=== PATIENT | male | born 1990 | race African-American/Black ===

== ENCOUNTER 2016-03-27 02:12 | Emergency (ER) | payer SELFPAY ==
[~2016-03-27] VITALS: Ht 193 cm; Wt 77.0 kg
[~2016-03-27 02:12] MED LIST: ALBU6.7H INH; PRED20 PO; VENTAER INH
[2016-03-27 02:16] VITALS: BP 151/98; PULSE 108; RESP 23; TEMP 98.3; O2SAT 87
[2016-03-27] MEDS: RESP: ALBUTEROL 2.5 MG/3 ML NEB (SCH) INH ×2 (02:20→02:28)
[2016-03-27 02:22] VITALS: RESP 20; O2SAT 93
[2016-03-27 02:25] VITALS: BP 158/97; PULSE 110; RESP 24; O2SAT 92
[2016-03-27] MEDS ORDERED: methylPREDNISolone SOD SUCC 125 MG/2 ML VIAL IVP ONE (02:30)
[2016-03-27] MEDS ORDERED: SODIUM CHLORIDE 0.9% FLUSH 5 ML FLUSH IVF PRN (02:30)
--- NOTE | 2016-03-27 02:39 | RADRPT ---
EXAM DATE/TIME: 03/27/2016 02:18 [facility] COMPARISON: CHEST SINGLE AP, June 15, 2015, 12:19. INDICATIONS : Shortness of breath. MEDICAL HISTORY : Asthma. SURGICAL HISTORY : None. ENCOUNTER: Initial ACUITY: 1 day PAIN SCORE: 0/10 LOCATION: Bilateral chest FINDINGS: A single view of the chest demonstrates the lungs to be symmetrically aerated without evidence of mas s, infiltrate or effusion. The cardiomediastinal contours are unremarkable. Osseous structures are intact. CONCLUSION: No acute disease. Royal Zee MD on March 27, 2016 at 2:37 Board Certified Radiologist. This report was verified electronically.
[2016-03-27] MEDS ORDERED: PRED20 PO (04:48)
[2016-03-27] MEDS ORDERED: VENTAER INH (04:48)
--- NOTE | 2016-03-27 04:48 | PD ---
HPI Chief Complaint: Respiratory Distress Time Seen by Provider: 02:22 Travel History International Travel<30 days: No Contact w/Intl Traveler<30days: No Traveled to known affect area: No History of Present Illness HPI 25 yo M arrives with wheezing. It has been worsening over the past day and a half or so. He has asthma. He smokes tobacco. He's had no fever. An occasional cough is reported. Chest tightness is reported. Onset gradual. Severity moderate. he denies drug abuse. PFSH Past Medical History Asthma: Yes Autoimmune Disease: No Blood Disorders: No Anxiety: Yes (WITH ASTHMA ATTACKS) Depression: No Heart Rhythm Problems: No Cardiovascular Problems: No Chest Pain: No Cystic Fibrosis: No Developmental Delay: No Diminished Hearing: No Genitourinary: No Headaches: No Hypertension: No Musculoskeletal: No Neurologic: No Psychiatric: No Reproductive: No Respiratory: Yes (ASTHMA) Immunizations Current: Yes Seizures: No Sickle Cell Disease: No Sleep Apnea: No Past Surgical History Surgical History: No Previous Surgery Abdominal Surgery: No Cardiac Surgery: No Ear Surgery: No Endocrine Surgery: No Eye Surgery: No Genitourinary Surgery: No Gynecologic Surgery: No Neurologic Surgery: No Oral Surgery: No Thoracic Surgery: No Social History Alcohol Use: No Tobacco Use: No Substance Use: Yes (OCC MARIJUANA) Allergies-Medications (Allergen,Severity, Reaction): Coded Allergies: No Known Allergies (Verified , 03/27/16) Reported Meds & Prescriptions Reported Meds & Active Scripts Active Ventolin Hfa 18 GM Inh (Albuterol Sulfate) 90 Mcg/Act Aer 2 Puff INH Q4-6H PRN Prednisone 20 Mg Tab 40 Mg PO DAILY 4 Days Reported Proventil Hfa 6.7 GM Inh (Albuterol Sulfate) 90 Mcg/Act Aer 2 Puff INH Q4-6H PRN Review of Systems Except as stated in HPI: all other systems reviewed are Neg Physical Exam Narrative GENERAL: 25 yo M, WNWD, moderate respt distress SKIN: Warm and dry. HEAD: Atraumatic. Normocephalic. EYES: Pupils equal and round. No scleral icterus. No injection or drainage. ENT: No nasal bleeding or discharge. Mucous membranes pink and moist. NECK: Trachea midline. No JVD. CARDIOVASCULAR: Regular rate and rhythm. RESPIRATORY: Wheezing. Dyspnea. GASTROINTESTINAL: Abdomen soft, non-tender, nondistended. Hepatic and splenic margins not palpable. MUSCULOSKELETAL: Extremities without clubbing, cyanosis, or edema. No obvious deformities. NEUROLOGICAL: Awake and alert. No obvious cranial nerve deficits. Motor grossly within normal limits. Five out of 5 muscle strength in the arms and legs. Normal speech. PSYCHIATRIC: Appropriate mood and affect; insight and judgment normal. Data Data Last Documented VS Vital Signs Date Time Temp Pulse Resp B/P Pulse Ox O2 Delivery O2 Flow Rate FiO2 03/27/16 02:25 110 24 158/97 92 Nasal Cannula 4 03/27/16 02:16 98.3 VS reviewed Orders Iv Access Insert/Monitor (03/27/16 02:22) Ecg Monitoring (03/27/16 02:22) Oximetry (03/27/16 02:22) Oxygen Administration (03/27/16 02:22) Chest, Single Ap (03/27/16 02:22) Sodium Chloride 0.9% Flush (Ns Flush) (03/27/16 02:30) Methylprednisolone So Succ Inj (Solumedr (03/27/16 02:30) Albuterol Neb (Albuterol Neb) (03/27/16 02:30) Albuterol Hfa Inh (Proair Hfa Inh) (03/27/16 05:00) Albuterol Neb (Albuterol Neb) (03/27/16 05:00) MDM Medical Decision Making Medical Screen Exam Complete: Yes Emergency Medical Condition: Yes Medical Record Reviewed: Yes Differential Diagnosis asthma, pna, ptx Narrative Course Last 24 hours Impressions Chest X-Ray 03/27/162 Signed Impressions: Service Date/Time: Sunday, March 27, 2016 02:18 - CONCLUSION: No acute disease. Royal Zee MD Wheezing resolved. Inhaler provided. Tobacco cessation discussed. Diagnosis Primary Impression: Acute asthma exacerbation Qualified Code: J45.901 - Asthma with acute exacerbation, unspecified asthma severity Referrals: Primary Care Physician 2 days Additional Instructions: You have a choice when it comes to health care, and we are glad that you chose [facility]. Hopefully, we have met your expectations on today's visit. You are welcome to return to [facility] at any time, as we are committed to meeting the health care needs of our community. Med/Other Pt SpecificInfo: Prescription(s) given Scripts Albuterol 18 GM Inh (Ventolin Hfa 18 GM Inh)90 Mcg/Act Aer2 Puff INH Q4-6H PRN ( SHORTNESS OF BREATH) #1 INHALER Ref 0 Prov:Matt Olmedo MD 03/27/16 Prednisone 20 Mg Tab40 Mg PO DAILY 4 Days Prov:Matt Olmedo MD 03/27/16 Disposition: 01 DISCHARGE HOME Condition: Stable Matt Olmedo MD Mar 27, 2016 04:48
[2016-03-27] MEDS ORDERED: RESP: ALBUTEROL 2.5 MG/3 ML NEB (SCH) INH ONE (05:00)
[2016-03-27] MEDS ORDERED: ALBUTEROL SULFATE 90 MCG/ACT HFA 8 GM INHALER INH ONE (05:00)
[2016-03-27 06:45] VITALS: BP 153/80; PULSE 98; RESP 17; O2SAT 93
== END 2016-03-27 06:46 | disposition home or self-care (01) ==
LOC: NEPC 02:12
DX: J45.901 Unspecified asthma with (acute) exacerbation (principal); Z72.0 Tobacco use; F12.90 Cannabis use, unspecified, uncomplicated
CPT/HCPCS: 71010; 94640; 94664; 96374; 99283; J2930; J7613

== ENCOUNTER 2016-06-09 19:44 | Emergency (ER) | payer SELFPAY ==
[~2016-06-09] VITALS: Ht 185.4 cm; Wt 88.0 kg
[2016-06-09 19:48] VITALS: BP 136/84; PULSE 95; RESP 16; TEMP 98.7; O2SAT 100
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
[2016-06-09] MEDS ORDERED: PRED20 PO (20:38)
[2016-06-09] MEDS ORDERED: VENTAER INH (20:38)
[2016-06-09] MEDS ORDERED: AUGM875T PO (20:38)
[2016-06-09] MEDS ORDERED: predniSONE 20 MG TAB PO ONE (20:45)
[2016-06-09] MEDS ORDERED: AMOXICILLIN/CLAVULANATE K 875 MG TAB PO ONE (20:45)
[2016-06-09] MEDS ORDERED: TETANUS/DIPHTHERIA TOXOID ADULT 0.5 ML VIAL IM ONE (20:45)
[2016-06-09] MEDS ORDERED: ACETAMINOPHEN 325 MG TAB PO ONE (20:45)
[2016-06-09] MEDS ORDERED: RESP: ALBUTEROL 2.5 MG/IPRATROPIUM 0.5 MG NEB (SCH) INH ONE (20:45)
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
[2016-06-09] MEDS ORDERED: DICL75TA PO (21:34)
[2016-06-09] MEDS ORDERED: NAPROXEN 500 MG TAB PO ONE (21:45)
== END 2016-06-09 22:15 | disposition home or self-care (01) ==
LOC: NEPD 19:44
DX: S83.501A Sprain of unspecified cruciate ligament of right knee, initial encounter (principal); S70.272A Other superficial bite of hip, left hip, initial encounter; R68.84 Jaw pain; J32.4 Chronic pansinusitis; J45.901 Unspecified asthma with (acute) exacerbation; Y04.1XXA Assault by human bite, initial encounter; Y92.89 Other specified places as the place of occurrence of the external cause; Z23 Encounter for immunization
CPT/HCPCS: 70450; 70486; 71010; 73564; 90471; 90714; 94664; 99284; J7512

== ENCOUNTER 2017-03-08 17:15 | Observation (INO) | payer SELFPAY ==
[~2017-03-08] VITALS: Ht 193 cm; Wt 86.2 kg
[~2017-03-08 17:15] MED LIST changes: -ALBU6.7H INH; +AUGM875T PO; +DICL75TA PO
[2017-03-08 17:17] VITALS: BP 132/67; PULSE 86; RESP 16; TEMP 98.4; O2SAT 95
[2017-03-08] MEDS ORDERED: KETOROLAC TROMETHAMINE 30 MG/ML (IVP) VIAL IV PUSH ONE (20:15)
[2017-03-08] MEDS ORDERED: SODIUM CHLORIDE 0.9% FLUSH 10 ML FLUSH IV FLUSH PRN (20:15)
--- NOTE | 2017-03-08 20:29 | PD ---
HPI Chief Complaint: Abdominal Pain Time Seen by Provider: 20:10 Travel History International Travel<30 days: No Contact w/Intl Traveler<30days: No Traveled to known affect area: No History of Present Illness HPI 26-year-old male here for evaluation of right lower quadrant abdominal/groin pain. 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 Describes pain as a pressure, constant, worse with movement and palpation. He denies history of abdominal surgeries. He believes he may have a hernia. No pain. No direct trauma. No vomiting. PFSH Past Medical History Asthma: Yes Autoimmune Disease: No Blood Disorders: No Anxiety: Yes (WITH ASTHMA ATTACKS) Depression: No Heart Rhythm Problems: No Cardiovascular Problems: No Chest Pain: No Cystic Fibrosis: No Developmental Delay: No Diminished Hearing: No Genitourinary: No Headaches: No Hypertension: No Musculoskeletal: No Neurologic: No Psychiatric: No Reproductive: No Respiratory: Yes Immunizations Current: Yes Seizures: No Sickle Cell Disease: No Sleep Apnea: No Past Surgical History Abdominal Surgery: No Cardiac Surgery: No Ear Surgery: No Endocrine Surgery: No Eye Surgery: No Genitourinary Surgery: No Gynecologic Surgery: No Neurologic Surgery: No Oral Surgery: No Thoracic Surgery: No Social History Alcohol Use: No Tobacco Use: No Substance Use: No Allergies-Medications (Allergen,Severity, Reaction): Coded Allergies: No Known Allergies (Verified Adverse Reaction, Unknown, 03/08/17) Reported Meds & Prescriptions Reported Meds & Active Scripts Active Review of Systems Except as stated in HPI: all other systems reviewed are Neg Physical Exam Narrative GENERAL: Well-developed, well-nourished, comfortable, no apparent distress. SKIN: Focused skin assessment warm/dry. No rash. HEAD: Atraumatic. Normocephalic. EYES: Pupils equal and round. No scleral icterus. No injection or drainage. ENT: No nasal bleeding or discharge. Mucous membranes pink and moist. NECK: Trachea midline. No JVD. CARDIOVASCULAR: Regular rate and rhythm. No murmur appreciated. RESPIRATORY: No accessory muscle use. Clear to auscultation. Breath sounds equal bilaterally. GASTROINTESTINAL: Abdomen soft, nondistended. Moderate right lower quadrant tenderness and tenderness along the right inguinal canal without obvious hernia , without peritoneal signs. The rest of his abdomen is soft and nontender. Normal bowel sounds. : Tenderness along the right inguinal canal without masses or obvious hernia. Rest of his exam is within normal limits without swelling or masses or tenderness. MUSCULOSKELETAL: No obvious deformities. No clubbing. No cyanosis. No edema. NEUROLOGICAL: Awake and alert. No obvious cranial nerve deficits. Motor grossly within normal limits. Normal speech. PSYCHIATRIC: Appropriate mood and affect; insight and judgment normal. Data Data Last Documented VS Vital Signs Date Time Temp Pulse Resp B/P (MAP) Pulse Ox O2 Delivery O2 Flow Rate FiO2 03/09/17 00:30 70 16 128/71 (90) 98 Room Air 03/08/17 22:37 21 03/08/17 17:17 98.4 Orders Orders Complete Blood Count With Diff (03/08/17 20:14) Comprehensive Metabolic Panel (03/08/17 20:14) Prothrombin Time / Inr (Pt) (03/08/17 20:14) Act Partial Throm Time (Ptt) (03/08/17 20:14) Urinalysis - C+S If Indicated (03/08/17 20:14) Ct Abd/Pel W Iv Contrast(Rout) (03/08/17 20:14) Iv Access Insert/Monitor (03/08/17 20:14) Ecg Monitoring (03/08/17 20:14) Oximetry (03/08/17 20:14) Sodium Chloride 0.9% Flush (Ns Flush) (03/08/17 20:15) Ketorolac Inj (Toradol Inj) (03/08/17 20:15) Oral Contrast - Adult (03/08/17 20:20) Diatrizoate Liq ( Gastroview Liq) (03/08/17 20:30) Urine Culture (03/08/17 20:30) Gc And Chlamydia Pcr (03/08/17 21:31) Ceftriaxone Inj (Rocephin Inj) (03/08/17 21:45) Azithromycin (Zithromax) (03/08/17 21:45) Azithromycin (Zithromax) (03/08/17 21:45) Iohexol 350 Inj (Omnipaque 350 Inj) (03/08/17 21:56) Morphine Inj (Morphine Inj) (03/08/17 22:30) Albuterol-Ipratropium Neb (Duoneb Neb) (03/08/17 22:30) Methylprednisolone So Succ Inj (Solumedr (03/08/17 22:30) Diatrizoate Liq (Md Denis Liq) (03/08/17 22:30) Labs Laboratory Tests Test 03/08/17 20:30 White Blood Count 6.3 TH/MM3 Red Blood Count 5.34 MIL/MM3 Hemoglobin 15.4 GM/DL Hematocrit 45.9 % Mean Corpuscular Volume 86.0 FL Mean Corpuscular Hemoglobin 28.9 PG Mean Corpuscular Hemoglobin Concent 33.6 % Red Cell Distribution Width 14.8 % Platelet Count 170 TH/MM3 Mean Platelet Volume 8.0 FL Neutrophils (%) (Auto) 53.5 % Lymphocytes (%) (Auto) 28.8 % Monocytes (%) (Auto) 10.5 % Eosinophils (%) (Auto) 6.0 % Basophils (%) (Auto) 1.2 % Neutrophils # (Auto) 3.4 TH/MM3 Lymphocytes # (Auto) 1.8 TH/MM3 Monocytes # (Auto) 0.7 TH/MM3 Eosinophils # (Auto) 0.4 TH/MM3 Basophils # (Auto) 0.1 TH/MM3 CBC Comment DIFF FINAL Differential Comment Prothrombin Time 10.8 SEC Prothromb Time International Ratio 1.1 RATIO Activated Partial Thromboplast Time 27.1 SEC Urine Color YELLOW Urine Turbidity CLEAR Urine pH 7.0 Urine Specific [place] 1.018 Urine Protein TRACE mg/dL Urine Glucose (UA) NEG mg/dL Urine Ketones NEG mg/dL Urine Occult Blood NEG Urine Nitrite NEG Urine Bilirubin NEG Urine Urobilinogen LESS THAN 2.0 MG/DL Urine Leukocyte Esterase MOD Urine RBC 3 /hpf Urine WBC 47 /hpf Urine Amorphous Sediment RARE Urine Mucus FEW /lpf Microscopic Urinalysis Comment CULTURE INDICATED Blood Urea Nitrogen 9 MG/DL Creatinine 1.20 MG/DL Random Glucose 71 MG/DL Total Protein 7.6 GM/DL Albumin 3.9 GM/DL Calcium Level 9.0 MG/DL Alkaline Phosphatase 64 U/L Aspartate Amino Transf (AST/SGOT) 26 U/L Alanine Aminotransferase (ALT/SGPT) 19 U/L Total Bilirubin 0.3 MG/DL Sodium Level 138 MEQ/L Potassium Level 4.3 MEQ/L Chloride Level 104 MEQ/L Carbon Dioxide Level 30.2 MEQ/L Anion Gap 4 MEQ/L Estimat Glomerular Filtration Rate 89 ML/MIN Chlamydia trachomatis DNA (PCR) DETECTED Neisseria gonorrhoeae DNA (PCR) NOT DETECTED MDM Medical Decision Making Medical Screen Exam Complete: Yes Emergency Medical Condition: Yes Differential Diagnosis Groin strain, appendicitis, inguinal hernia Narrative Course Vital signs show heart rate 86, blood pressure 132/67, pulse ox 95% on room air , tympanic temp of 98.4F. CBC: WBC 6.3, hemoglobin 15.4, hematocrit 45.9, platelets 170. CMP is unremarkable. UA: Moderate leukocyte esterase, 47 wbc's, few mucus. Patient was empirically treated for gonorrhea and chlamydia with Rocephin and azithromycin. CT abdomen pelvis: CONCLUSION: Hepatomegaly. Minimal ascites within the pelvis which is nonspecific. I discussed the CT findings with the reading radiologist Dr. Salas who tells me that contrast has not made its way down to the colon, therefore he cannot fully evaluate for appendicitis. He does not see any secondary signs of appendicitis , however there is some ascites. Plan is to have the patient drink more IV contrast and to repeat scan in 1 hour. Patient was made aware of findings and of plan. He tells me that he feels short of breath and feels as though he may be wheezing. He has history of asthma. On exam he does have inspiratory and 20 wheezes bilaterally. He is in no respiratory distress. DuoNeb treatments and IV Solu-Medrol ordered. Repeat CT Abd/Pelvis: Delayed images are performed following administration of additional oral contrast. The urinary bladder is densely opacified with contrast as are the ureters. There is a small amount of free fluid in the pelvis. The appendix is not definitively visualized. The I discussed the repeat CT with reading radiologist Dr. Cardona. Although he cannot see the appendix, there are no inflammatory changes that would suggest appendicitis. Patient was given IV Toradol initially and continued to complain of pain. He was given 4 mg of IV morphine and states that his pain has lessened, however is still there. His tenderness is mainly along the right inguinal canal. There are no masses or hernias present. This is more likely musculoskeletal strain, however the patient is concerned about his ongoing pain. He will be admitted for overnight observation for intractable abdominal pain. Case discussed with hospitalist Dr. Ballard who will admit the patient to her service. Diagnosis Primary Impression: Intractable abdominal pain Additional Impression: Asthma exacerbation Qualified Codes: J45.901 - Unspecified asthma with (acute) exacerbation Admitting Information Admitting Physician Requests: Observation Agusto Arteaga MD Mar 08, 2017 20:29
[2017-03-08] MEDS ORDERED: DIATRIZOATE MEGLUM/DIATRIZOATE SOD 9 ML CUP PO ONE ×2 (20:30→22:30)
[2017-03-08 20:37] LABS: AUTOMATED NEUTROPHIL # 3.4 TH/MM3 (1.8-7.7); BASOPHIL # 0.1 TH/MM3 (0-0.2); BASOPHIL % 1.2 % (0.0-2.0); EOSINOPHIL # 0.4 TH/MM3 (0-0.4); HEMATOCRIT 45.9 % (39.0-51.0); HEMOGLOBIN 15.4 GM/DL (13.0-17.0); LYMPH % 28.8 % (9.0-44.0); LYMPHOCYTE # 1.8 TH/MM3 (1.0-4.8); MEAN CORPUSCULAR HEMOGLOBIN 28.9 PG (27.0-34.0); MEAN CORPUSCULAR HGB CONC 33.6 % (32.0-36.0); MONO % 10.5 % (0.0-8.0); MONOCYTE # 0.7 TH/MM3 (0-0.9); NEUT % 53.5 % (16.0-70.0); PLATELET COUNT 170 TH/MM3 (150-450); RED BLOOD COUNT 5.34 MIL/MM3 (4.50-5.90); RED CELL DISTRIBUTION WIDTH 14.8 % (11.6-17.2); WHITE BLOOD COUNT 6.3 TH/MM3 (4.0-11.0)
[2017-03-08 20:40] VITALS: RESP 16
[2017-03-08 20:41] LABS: AMORPHOUS SEDIMENT, URINE RARE; BILIRUBIN, URINE NEG (NEG); BLOOD, URINE NEG (NEG); GLUCOSE,URINE NEG (NEG); KETONE, URINE NEG (NEG); MUCUS URINE FEW /lpf (OCC); NITRITE,URINE NEG (NEG); URINE COLOR YELLOW (YELLW/STRAW); URINE LEUKOCYTE ESTERASE MOD (NEG)
[2017-03-08 20:48] LABS: INTERNATIONAL NORMALIZED RATIO 1.1 RATIO; PROTHROMBIN TIME - PATIENT 10.8 SEC (9.8-11.6)
[2017-03-08 21:13] LABS: ALT (GPT) 19 U/L (12-78)
[2017-03-08 21:16] LABS: ALKALINE PHOSPHATASE 64 U/L (45-117); TOTAL BILIRUBIN ADULT 0.3 MG/DL (0.2-1.0); TOTAL PROTEIN 7.6 GM/DL (6.4-8.2)
[2017-03-08 21:27] LABS: ALBUMIN 3.9 GM/DL (3.4-5.0); AST (GOT) 26 U/L (15-37); BICARBONATE 30.2 MEQ/L (21.0-32.0); BLOOD UREA NITROGEN 9 MG/DL (7-18); CHLORIDE 104 MEQ/L (98-107); GLOMERULAR FILTRATION RATE 89 ML/MIN (>89); GLUCOSE,RANDOM 71 MG/DL (74-106); SODIUM (NA) 138 MEQ/L (136-145)
[2017-03-08] MEDS ORDERED: AZITHROMYCIN 250 MG TAB PO ONE ×2 (21:45)
[2017-03-08] MEDS ORDERED: cefTRIAXone INJ 1,000 MG in SODIUM CHLORIDE 0.9% INJ 100 ML IV ONE (21:45)
[2017-03-08] MEDS ORDERED: IOHEXOL 350 MG/ML 10 ML VIAL (for RAD DIAG) IVCONTRAST ONE (21:56)
--- NOTE | 2017-03-08 22:09 | RADRPT ---
EXAM DATE/TIME: 03/08/2017 21:51 This report includes an Addendum and supersedes previous reports for this exam. [facility] COMPARISON: No previous studies available for comparison. INDICATIONS : Abdominal pain. IV CONTRAST: 100 cc Omnipaque 350 (iohexol) IV ORAL CONTRAST: Prescribed oral contrast ingested. RADIATION DOSE: 4.90 CTDIvol (mGy) MEDICAL HISTORY : None SURGICAL HISTORY : None. ENCOUNTER: Initial ACUITY: 1 day PAIN SCALE: 5/10 LOCATION: abdomen TECHNIQUE: Volumetric scanning of the abdomen and pelvis was performed. Using automated exposure control and ad justment of the mA and/or kV according to patient size, radiation dose was kept as low as reasonably achievable to obtain optimal diagnostic quality images. DICOM format image data is available electro nically for review and comparison. FINDINGS: LOWER LUNGS: The visualized lower lungs are clear. LIVER: The liver is enlarged. Homogeneous density without lesion. There is no dilation of the biliary tree. No calcified gallstones. SPLEEN: Normal size without lesion. PANCREAS: Within normal limits. KIDNEYS: Normal in size and shape. There is no mass, stone or hydronephrosis. ADRENAL GLANDS: Within normal limits. VASCULAR: There is no aortic aneurysm. BOWEL/MESENTERY: The stomach, small bowel, and colon demonstrate no acute abnormality. There is no free intraperitone al air. Minimal free fluid is noted within the pelvis which is nonspecific. ABDOMINAL WALL: Within normal limits. RETROPERITONEUM: There is no lymphadenopathy. BLADDER: No wall thickening or mass. REPRODUCTIVE: Within normal limits. INGUINAL: There is no lymphadenopathy or hernia. MUSCULOSKELETAL: Within normal limits for patient age. CONCLUSION: Hepatomegaly. Minimal ascites within the pelvis which is nonspecific. Jeffrey Salas MD on March 08, 2017 at 22:03 Board Certified Radiologist. This report was verified electronically. ADDENDUM: Delayed images are performed following administration of additional oral contrast. The urinary bladde r is densely opacified with contrast as are the ureters. There is a small amount of free fluid in the pelvis. The appendix is not definitively visualized. The Khoi Cardona MD on March 08, 2017 at 23:58 Board Certified Radiologist. This report was verified electronically.
[2017-03-08] MEDS ORDERED: methylPREDNISolone SOD SUCC 125 MG/2 ML VIAL IV PUSH ONE (22:30)
[2017-03-08] MEDS ORDERED: MORPHINE SULFATE 2 MG/ML INJ IV PUSH ONE (22:30)
[2017-03-08 22:37] VITALS: O2SAT 98
[2017-03-08] MEDS: RESP: ALBUTEROL 2.5 MG/IPRATROPIUM 0.5 MG NEB (SCH) INH (22:37)
[2017-03-09 00:30] VITALS: BP 128/71; PULSE 70; RESP 16; O2SAT 98
[2017-03-09] MEDS ORDERED: SENNOSIDES 8.6 MG TAB PO PRN (01:30)
[2017-03-09] MEDS ORDERED: NALOXONE HCL 0.4 MG/ML AMP IV PUSH PRN (01:30)
[2017-03-09] MEDS ORDERED: ACETAMINOPHEN 325 MG TAB PO PRN (01:30)
[2017-03-09] MEDS ORDERED: LACTULOSE SYRUP 20 GM/30 ML CUP PO PRN (01:30)
[2017-03-09] MEDS ORDERED: MAGNESIUM HYDROXIDE SUSP 30 ML CUP PO PRN (01:30)
[2017-03-09] MEDS ORDERED: BISACODYL 10 MG SUPP RECTAL PRN (01:30)
[2017-03-09] MEDS ORDERED: ONDANSETRON HCL 4 MG/2 ML VIAL IVP PRN (01:30)
[2017-03-09] MEDS ORDERED: SODIUM CHLORIDE 0.9% FLUSH 10 ML FLUSH IV FLUSH PRN (01:30)
[2017-03-09 02:01] VITALS: BP 129/72; PULSE 84; RESP 18; TEMP 97.3; O2SAT 97
--- NOTE | 2017-03-09 04:48 | HHI.HP ---
[facility] Service [facility] Primary Care Physician No Primary Care Physician Admission Diagnosis intractable abdominal pain, asthma exacerbation Diagnoses: Travel History International Travel<30 Days: No Contact w/Intl Traveler <30 Da: No Traveled to Known Affected Are: No History of Present Illness 26-year-old male presents to the emergency department evaluation of abdominal pain. The patient reports that he was at work earlier and was doing heavy lifting when he began to notice pain in his right lower quadrant and right groin. He describes it as a 6/10 constant pressure that is worse with movement and palpation. He states the pain is improved since his arrival to the emergency department. He denies any nausea/vomiting/diarrhea. Denies any fever /chills. Vital signs: Temperature 98.4, pulse 86, respirations 16, BP 132/67, pulse ox 95% on room air. Review of Systems Except as stated in HPI: all other systems reviewed are Neg Past Family Social History Past Medical History Asthma Past Surgical History None Reported Medications Reported Meds & Active Scripts Active None Allergies: Coded Allergies: No Known Allergies (Verified Allergy, Unknown, 03/09/17) Family History Both parents ; father of DE at age 74, mother of renal failure. Social History Denies tobacco. Denies alcohol. Positive marijuana. Physical Exam Vital Signs Vital Signs Date Time Temp Pulse Resp B/P (MAP) Pulse Ox O2 Delivery O2 Flow Rate FiO2 03/09/17 02:01 97.3 84 18 129/72 (91) 97 03/09/17 00:30 70 16 128/71 (90) 98 Room Air 03/08/17 22:44 18 03/08/17 22:37 98 21 03/08/17 21:34 16 03/08/17 20:40 16 03/08/17 17:17 98.4 86 16 132/67 (88) 95 Physical Exam GENERAL: male lying in bed sleeping SKIN: No rashes, ecchymoses or lesions. Cool and dry. HEAD: Atraumatic. Normocephalic. No temporal or scalp tenderness. EYES: Pupils equal round and reactive. Extraocular motions intact. No scleral icterus. No injection or drainage. ENT: Nose without bleeding, purulent drainage or septal hematoma. Throat without erythema, tonsillar hypertrophy or exudate. Uvula midline. Airway patent. NECK: Trachea midline. No JVD or lymphadenopathy. Supple, nontender, no meningeal signs. CARDIOVASCULAR: Regular rate and rhythm without murmurs, gallops, or rubs. RESPIRATORY: Clear to auscultation. Breath sounds equal bilaterally. No wheezes , rales, or rhonchi. GASTROINTESTINAL: Abdomen soft, non-tender to deep palpation, nondistended. No hepato-splenomegaly, or palpable masses. No guarding. MUSCULOSKELETAL: Extremities without clubbing, cyanosis, or edema. No joint tenderness, effusion, or edema noted. No calf tenderness. NEUROLOGICAL: Awake and alert. Cranial nerves II through XII intact. Motor and sensory grossly within normal limits. Normal speech. Laboratory Laboratory Tests Test 03/08/17 20:30 White Blood Count 6.3 Red Blood Count 5.34 Hemoglobin 15.4 Hematocrit 45.9 Mean Corpuscular Volume 86.0 Mean Corpuscular Hemoglobin 28.9 Mean Corpuscular Hemoglobin Concent 33.6 Red Cell Distribution Width 14.8 Platelet Count 170 Mean Platelet Volume 8.0 Neutrophils (%) (Auto) 53.5 Lymphocytes (%) (Auto) 28.8 Monocytes (%) (Auto) 10.5 Eosinophils (%) (Auto) 6.0 Basophils (%) (Auto) 1.2 Neutrophils # (Auto) 3.4 Lymphocytes # (Auto) 1.8 Monocytes # (Auto) 0.7 Eosinophils # (Auto) 0.4 Basophils # (Auto) 0.1 CBC Comment DIFF FINAL Differential Comment Prothrombin Time 10.8 Prothromb Time International Ratio 1.1 Activated Partial Thromboplast Time 27.1 Urine Color YELLOW Urine Turbidity CLEAR Urine pH 7.0 Urine Specific [place] 1.018 Urine Protein TRACE Urine Glucose (UA) NEG Urine Ketones NEG Urine Occult Blood NEG Urine Nitrite NEG Urine Bilirubin NEG Urine Urobilinogen LESS THAN 2.0 Urine Leukocyte Esterase MOD Urine RBC 3 Urine WBC 47 Urine Amorphous Sediment RARE Urine Mucus FEW Microscopic Urinalysis Comment CULTURE INDICATED Blood Urea Nitrogen 9 Creatinine 1.20 Random Glucose 71 Total Protein 7.6 Albumin 3.9 Calcium Level 9.0 Alkaline Phosphatase 64 Aspartate Amino Transf (AST/SGOT) 26 Alanine Aminotransferase (ALT/SGPT) 19 Total Bilirubin 0.3 Sodium Level 138 Potassium Level 4.3 Chloride Level 104 Carbon Dioxide Level 30.2 Anion Gap 4 Estimat Glomerular Filtration Rate 89 Chlamydia trachomatis DNA (PCR) DETECTED Neisseria gonorrhoeae DNA (PCR) NOT DETECTED Date/Time Source Procedure Growth Status 03/08/17 20:30 Urine Random Urine Urine Culture Pending Received Result Diagram: 03/08/17202903/08/172029 Caprini VTE Risk Assessment Caprini VTE Risk Assessment: No/Low Risk (score <= 1) Caprini Risk Assessment Model Point Value = 1 Point Value = 2 Point Value = 3 Point Value = 5 Age 41-60 Minor surgery BMI > 25 kg/m2 Swollen legs Varicose veins or History of unexplained or recurrent spontaneous Oral contraceptives or hormone replacement Sepsis (< 1 month) Serious lung disease, including pneumonia (< 1 month) Abnormal pulmonary function Acute myocardial infarction Congestive heart failure (< 1 month) History of inflammatory bowel disease Medical patient at bed rest Age 61-74 Arthroscopic surgery Major open surgery (> 45 min) Laparoscopic surgery (> 45 min) Malignancy Confined to bed (> 72 hours) Immobilizing plaster cast Central venous access Age >= 75 History of VTE Family history of VTE Factor V Leiden Prothrombin [id number] Lupus anticoagulant Anticardiolipin antibodies Elevated serum homocysteine Heparin-induced thrombocytopenia Other congenital or acquired thrombophilia Stroke (< 1 month) Elective arthroplasty Hip, pelvis, or leg fracture Acute spinal cord injury (< 1 month) Prophylaxis Regimen Total Risk Factor Score Risk Level Prophylaxis Regimen 0-1 Low Early ambulation 2 Moderate Order ONE of the following: *Sequential Compression Device (SCD) *Heparin 5000 units SQ BID 3-4 Higher Order ONE of the following medications: *Heparin 5000 units SQ TID *Enoxaparin/Lovenox 40 mg SQ daily (WT < 150 kg, CrCl > 30 mL/min) *Enoxaparin/Lovenox 30 mg SQ daily (WT < 150 kg, CrCl > 10-29 mL/min) *Enoxaparin/Lovenox 30 mg SQ BID (WT < 150 kg, CrCl > 30 mL/min) AND/OR *Sequential Compression Device (SCD) 5 or more Highest Order ONE of the following medications: *Heparin 5000 units SQ TID (Preferred with Epidurals) *Enoxaparin/Lovenox 40 mg SQ daily (WT < 150 kg, CrCl > 30 mL/min) *Enoxaparin/Lovenox 30 mg SQ daily (WT < 150 kg, CrCl > 10-29 mL/min) *Enoxaparin/Lovenox 30 mg SQ BID (WT < 150 kg, CrCl > 30 mL/min) AND *Sequential Compression Device (SCD) Assessment and Plan Assessment and Plan Assessment/plan: 1. Intractable abdominal pain CT of the abdomen/pelvis significant for a small amount of free fluid in the pelvis, appendix not definitively visualized Likely musculoskeletal in origin Per patient, pain is improving since his arrival to the emergency department Anticipate discharge later today if clinically improved As appendicitis cannot definitively be ruled out, if symptoms worsen consider general surgery consult 2. Asthma Stable FEN Regular diet Electrolytes: monitor and replete prn Ambulation Myrna Ballard MD Mar 09, 2017 04:48
[2017-03-09 07:49] VITALS: BP 122/79; PULSE 68; RESP 18; TEMP 97.7; O2SAT 98
[2017-03-09] MEDS ORDERED: SODIUM CHLORIDE 0.9% FLUSH 10 ML FLUSH IV FLUSH SCH (09:00)
--- NOTE | 2017-03-09 09:35 | HHI.PR ---
Subjective Remarks Follow-up visit abdominal pain. Patient seen and examined today sitting in chair eating his breakfast. States he is able to eat two trays if needed. States pain is significantly improved. Denies pain and discomfort. Denies SOB / dyspnea. Denies chest pain, palpitations, headaches, dizziness. Denies fevers , chills, n/v/d. Denies hematuria, dysuria. Objective Vitals Vital Signs Date Time Temp Pulse Resp B/P (MAP) Pulse Ox O2 Delivery O2 Flow Rate FiO2 03/09/17 07:49 97.7 68 18 122/79 (93) 98 03/09/17 02:01 97.3 84 18 129/72 (91) 97 03/09/17 00:30 70 16 128/71 (90) 98 Room Air 03/08/17 22:44 18 03/08/17 22:37 98 21 03/08/17 21:34 16 03/08/17 20:40 16 03/08/17 17:17 98.4 86 16 132/67 (88) 95 I/O 03/08/17 03/08/17 03/08/17 03/09/17 03/09/17 03/09/17 07:00 15:00 23:00 07:00 15:00 23:00 Intake Total 1200 ml Balance 1200 ml Intake Oral 1200 ml # Voids 1 Result Diagram: 03/08/17202903/08/172029 Imaging Last Impressions Abdomen/Pelvis CT 03/08/172013 Signed Impressions: Service Date/Time: March 21:51 - CONCLUSION: Hepatomegaly. Minimal ascites within the pelvis which is nonspecific. Jeffrey Salas MD ADDENDUM: Delayed images are performed following administration of additional oral contrast. The urinary bladder is densely opacified with contrast as are the ureters. There is a small amount of free fluid in the pelvis. The appendix is not definitively visualized. The Khoi Cardona MD Objective Remarks GENERAL: This is a well-nourished, well-developed patient, in no apparent distress. SKIN: Warm and dry HEENT: Normocephalic. Pupils equal round and reactive. Nose without bleeding. Airway patent. NECK: Trachea midline. No JVD. Supple. CARDIOVASCULAR: Regular rate and rhythm without murmurs, gallops, or rubs. RESPIRATORY: Clear to auscultation. Breath sounds equal bilaterally. No wheezes , rales, or rhonchi. GASTROINTESTINAL: Abdomen soft, non-tender, nondistended. Bowel Sounds normoactive x4. MUSCULOSKELETAL: Extremities without clubbing, cyanosis, or edema. NEUROLOGICAL: Awake and alert. Oriented to time, place, person. No focal neuro deficit. Moves all extremities. Normal speech. A/P Problem List: (1) Intractable abdominal pain ICD Code: R10.9 - Unspecified abdominal pain Status: Acute Assessment and Plan Patient is 26-year-old male presents to the emergency department evaluation of abdominal pain. Intractable abdominal pain - CT of the abdomen/pelvis significant for a small amount of free fluid in the pelvis, appendix not definitively visualized - Likely musculoskeletal in origin, states that he was lifting [employer] at work by himself and it was heavy. - Per patient, pain is significantly improved and is gone. - Appendicitis cannot be definitely ruled out but patient's report pain has been relieved without any worsening. - Discuss results of CT scan. Refer to follow up with PCP [facility] Asthma - Stable not in exacerbation DVT prop ambulation. Discharge patient to home Condition on discharge: Improved Regular Diet as tolerated Ad Cyndie activity avoid heavy lifting and strenuous activity Rx written: Follow-up with primary care physician Discharge Planning Plan to discharge home today. Santiago Ansari Mar 09, 2017 09:35
[2017-03-09 11:55] VITALS: BP 130/69; PULSE 78; RESP 18; TEMP 98; O2SAT 97
== END 2017-03-09 14:00 | disposition home or self-care (01) ==
LOC: NEPD 17:15 → NEDA 03-09 00:54 → NEPGCP 03-09 01:54
PROVIDERS: ADMIT Hospitalist; ATTEND Hospitalist
DX: R10.31 Right lower quadrant pain (principal); J45.901 Unspecified asthma with (acute) exacerbation; B96.89 Other specified bacterial agents as the cause of diseases classified elsewhere; R16.0 Hepatomegaly, not elsewhere classified; R18.8 Other ascites
CPT/HCPCS: 74177; 80053; 81001; 85025; 85610; 85730; 87086; 87491; 87591; 94640; 94664; 96365; 96375; 99285; G0378; J0696; J1885; J2270; J2930; Q9963; Q9967

== ENCOUNTER 2017-05-05 21:38 | Emergency (ER) | payer SELFPAY ==
[~2017-05-05] VITALS: Ht 190.5 cm; Wt 82.0 kg
[2017-05-05 21:48] VITALS: BP 139/79; PULSE 89; RESP 32; TEMP 97.3; O2SAT 96
[2017-05-05 21:56] VITALS: BP 144/98; PULSE 87; RESP 18; O2SAT 95
[2017-05-05] MEDS ORDERED: RESP: ALBUTEROL 2.5 MG/IPRATROPIUM 0.5 MG NEB (SCH) INH ONE (22:00)
[2017-05-05] MEDS ORDERED: DEXAMETHASONE SOD PHOS 4 MG/ML VIAL IM ONE (22:00)
--- NOTE | 2017-05-05 22:06 | PD ---
HPI Chief Complaint: Respiratory Distress Time Seen by Provider: 21:58 Travel History International Travel<30 days: No Contact w/Intl Traveler<30days: No Traveled to known affect area: No History of Present Illness HPI 27-year-old black male presents emergency department with complaints of shortness of breath and wheezing. Patient states that he is out of his medications. He has a history of asthma. Patient has had some shortness of breath and wheezing but much worse in the last hour. He presents to the ER for treatment. Denies any fever chills. No sputum production. No nausea vomiting. No abdominal pain or diarrhea. No dysuria or frequency. Symptoms are moderate. Exacerbated by activity. Alleviated by albuterol. PFSH Past Medical History Narrative Medical Asthma Asthma: Yes Autoimmune Disease: No Blood Disorders: No Anxiety: No Depression: No Heart Rhythm Problems: No Cardiovascular Problems: No Chest Pain: No Cystic Fibrosis: No Developmental Delay: No Diminished Hearing: No Gastrointestinal Disorders: No Genitourinary: No Headaches: No Hypertension: No Musculoskeletal: No Neurologic: No Psychiatric: No Reproductive: No Respiratory: Yes (asthma) Immunizations Current: Yes Seizures: No Sickle Cell Disease: No Sleep Apnea: No Tetanus Vaccination: < 5 Years Influenza Vaccination: Yes Past Surgical History Surgical History: No Previous Surgery Abdominal Surgery: No Cardiac Surgery: No Ear Surgery: No Endocrine Surgery: No Eye Surgery: No Genitourinary Surgery: No Gynecologic Surgery: No Neurologic Surgery: No Oral Surgery: No Thoracic Surgery: No Other Surgery: No Social History Alcohol Use: No Tobacco Use: No Substance Use: Yes (marijuana ) Allergies-Medications (Allergen,Severity, Reaction): Coded Allergies: No Known Allergies (Verified Allergy, Unknown, 05/05/17) Reported Meds & Prescriptions Reported Meds & Active Scripts Active Diclofenac Sodium DR (Diclofenac Sodium) 50 Mg Tabdr 50 Mg PO TID Amoxicillin 500 Mg Cap 500 Mg PO TID 7 Days Proventil Hfa 6.7 GM Inh (Albuterol Sulfate) 90 Mcg/Act Aer 2 Puff INH Q4-6H PRN Deltasone (Prednisone) 20 Mg Tab 20 Mg PO BID Review of Systems General / Constitutional: No: Fever Eyes: No: Visual changes HENT: No: Headaches Cardiovascular: No: Chest Pain or Discomfort Respiratory: Positive: Cough, Shortness of Breath, Wheezing Gastrointestinal: No: Abdominal Pain Genitourinary: No: Dysuria Musculoskeletal: No: Pain Skin: No Rash Neurologic: No: Weakness Psychiatric: No: Depression Endocrine: No: Polydipsia Hematologic/Lymphatic: No: Easy Bruising Physical Exam Narrative GENERAL: Well-developed, well-nourished in mild respiratory distress. Nontoxic appearing. HEAD: Normocephalic, atraumatic. EYES: Pupils equal round and reactive. Extraocular motions intact. No scleral icterus. No injection or drainage. ENT: TMs clear without erythema. The external auditory canals clear. Nose: clear . Posterior pharynx is pink and moist. No tonsillar edema or exudate. Uvula midline. Airway patent. NECK: Trachea midline.Supple, nontender, moves head freely. No central bony tenderness or spasm. CARDIOVASCULAR: Regular rate and rhythm without murmurs, gallops, or rubs. RESPIRATORY: Fine inspiratory ex. Wheezes. No rales. No rhonchi. Mild respiratory distress. Speaks in full complete sentences. GASTROINTESTINAL: Abdomen soft, non-tender, nondistended. No hepato-splenomegaly , or palpable masses. No guarding. EXTREMITIES: No clubbing, cyanosis, or edema. No joint tenderness, effusion, or edema noted. BACK: Nontender without deformity or crepitance. No flank tenderness. Data Data Last Documented VS Vital Signs Date Time Temp Pulse Resp B/P (MAP) Pulse Ox O2 Delivery O2 Flow Rate FiO2 05/05/17 22:26 05/05/17 22:08 97 Room Air 05/05/17 21:56 87 18 05/05/17 21:48 97.3 Orders Orders Albuterol-Ipratropium Neb (Duoneb Neb) (05/05/17 22:00) Dexamethasone Inj (Decadron Inj) (05/05/17 22:00) Amoxicillin (Trimox) (05/05/17 22:15) Naproxen (Naprosyn) (05/05/17 22:15) MDM Medical Decision Making Medical Screen Exam Complete: Yes Emergency Medical Condition: Yes Medical Record Reviewed: Yes Differential Diagnosis MDM: High Differential diagnoses: Pneumonia, bronchitis, URI, asthma, RAD, legionnaire's disease, SARS, ARDS, influenza, bronchiolitis, RSV,PE,CHF Narrative Course Patient is given Decadron 12 mg IM and albuterol Atrovent nebulizer treatment. After the patient's treatment I was made aware that he is also complaining of dental pain. He is given amoxicillin 500 mg p.o. and Naprosyn 500 mg p.o. The patient has significantly improved after one treatment. He has nearly completely clear. He is resting comfortable watching TV and using his cell phone. This is asthma exacerbation, dentalgia, dental caries Diagnosis Primary Impression: Acute asthma exacerbation Qualified Codes: J45.21 - Mild intermittent asthma with (acute) exacerbation Additional Impressions: Dentalgia Dental caries Patient Instructions: General Instructions Additional Instructions: Rest. Increase fluids. Tylenol and Advil. Robitussin-DM. Amoxicillin and diclofenac. prednisone, and albuterol. [place] oil on cotton balls. Followup with your Dr. in one week. Follow-up with a dentist as soon as possible. Return to the ER for any problems. Med/Other Pt SpecificInfo: Prescription(s) given Scripts Diclofenac Sodium DR (Diclofenac Sodium DR) 50 Mg Tabdr 50 MG PO TID, #21 TAB 0 Refills Prov: Brian Baum MD 05/05/17 Amoxicillin (Amoxicillin) 500 Mg Cap 500 MG PO TID for Infection for 7 Days, CAP 0 Refills Prov: Brian Baum MD 05/05/17 Albuterol 6.7 GM Inh (Proventil Hfa 6.7 GM Inh) 90 Mcg/Act Aer 2 PUFF INH Q4-6H Y for SHORTNESS OF BREATH, #1 INHALER 0 Refills Prov: Brian Baum MD 05/05/17 Prednisone (Deltasone) 20 Mg Tab 20 MG PO BID, #10 TAB 0 Refills Prov: Brian Baum MD 05/05/17 Disposition: 01 DISCHARGE HOME Condition: Stable Jeovany Zaldivar May 05, 2017 22:06
[2017-05-05 22:08] VITALS: O2SAT 97
[2017-05-05] MEDS ORDERED: ALBU6.7H INH (22:08)
[2017-05-05] MEDS ORDERED: PRED-503 PO (22:08)
[2017-05-05] MEDS ORDERED: NAPROXEN 500 MG TAB PO ONE (22:15)
[2017-05-05] MEDS ORDERED: AMOXICILLIN (TRIHYDRATE) 500 MG CAP PO ONE (22:15)
[2017-05-05] MEDS ORDERED: DICL50TA3 PO (22:19)
[2017-05-05] MEDS ORDERED: AMOX500C PO (22:19)
== END 2017-05-06 04:21 | disposition home or self-care (01) ==
LOC: NEPD 21:38
DX: J45.21 Mild intermittent asthma with (acute) exacerbation (principal); K02.9 Dental caries, unspecified; F12.90 Cannabis use, unspecified, uncomplicated
CPT/HCPCS: 94664; 96372; 99283; J1100